=== PATIENT | female | born 1995 | race Caucasian/White ===

== ENCOUNTER → 2020-06-04 | Outpatient (CLI) | payer OTHER ==
--- NOTE | 2020-06-04 13:34 | MR ---
MR brain without contrast HISTORY: H 53.8, R 51.9 Multiplanar multisequence imaging through the brain, no comparisons There is no restricted diffusion. There is no hemorrhage or hydrocephalus. There are normal vascular flow voids. Brain signal is maintained. Corpus callosum, pituitary, cervical medullary junction, cere bellopontine angles are normal. Orbits show symmetric appearance. Paranasal sinuses and mastoid air c ells are well aerated. IMPRESSION: Normal brain MRI.
== END | disposition home or self-care (01) ==
LOC: RADMRIMAIN 07:45
PROVIDERS: ATTEND Family Medicine
DX: H53.8 Other visual disturbances (principal); R51.9 Headache, unspecified
CPT/HCPCS: 70551

== ENCOUNTER → 2020-06-17 | Outpatient (CLI) | payer OTHER ==
--- NOTE | 2020-06-17 08:22 | MR ---
EXAMINATION TYPE: MR brain w con DATE OF EXAM: 06/17/2020 COMPARISON: Prior brain MRI 06/04/2020 HISTORY: Blurry vision, intractable headache TECHNIQUE: Multiplanar, multisequence images of the brain and brainstem is with IV contrast, utilizing 9.5 mL i ntravenous Gadavist . FINDINGS: No abnormal enhancement following contrast administration. Sagittal sinuses enhance unremar kably. Midline structures demonstrate normal morphology. The craniocervical junction appears within normal limits. The visualized sinuses are clear and the globes are intact. IMPRESSION: No abnormal enhancement. Normal brain MRI
--- NOTE | 2020-06-17 08:25 | MR ---
EXAMINATION TYPE: MR angio head wo con DATE OF EXAM: 06/17/2020 COMPARISON: MR brain same date HISTORY: Blurry vision, intractable headache TECHNIQUE: Time of flight images focusing on the [place] of [place] were performed without contrast. Th ree-dimensional reconstructions on an alternate workstation. FINDINGS: Anterior and posterior circulation are intact, [place] of [place] is patent. There is no evid ent dissection, aneurysm, embolus, or significant stenosis. IMPRESSION: Unremarkable [place] of [place] MRA
== END | disposition home or self-care (01) ==
LOC: RADMRIMAIN 06:35
PROVIDERS: ATTEND Family Medicine
DX: H53.8 Other visual disturbances (principal); R51.9 Headache, unspecified
CPT/HCPCS: 70544; 70552; A9585

== ENCOUNTER → 2020-07-08 | Outpatient (CLI) | payer OTHER ==
[2020-07-08 12:58] VITALS: BP 140/99; PULSE 101; RESP 18; TEMP 98
--- NOTE | 2020-07-08 13:19 | P.PAINCN ---
History of Present Illness - Reason for Consult Consult date: 07/08/20 - History of Present Illness This is 45 years old female with a chronic history of severe neck pain and headache, started more than 5 years ago, and increases in intensity over the last month, the headache is constant localized in the right side of the head, from the base of the skull and radiated to the top, she denies any motor or sensory deficit she denies any fever or night sweats which is normal numbness or tingling sensation in the upper extremity, the intensity of the headache increased with then neck movement and also associated with nausea and vomiting occasionally, she has been on different kind of headache medication without any significant relief Past Medical History Additional Past Medical History / Comment(s): headaches and neck pain History of Any Multi-Drug Resistant Organisms: None Reported Past Surgical History: Orthopedic Surgery Additional Past Surgical History / Comment(s): wisdom teeth, left knee ACL Past Anesthesia/Blood Transfusion Reactions: No Reported Reaction Past Psychological History: No Psychological Hx Reported Smoking Status: Never smoker Past Alcohol Use History: Occasional Past Drug Use History: None Reported - Past Family History Mother Family Medical History: No Reported History Medications and Allergies Home Medications Medication Instructions Recorded Confirmed Type Cyclobenzaprine [Flexeril] 1 tab PO DIRECTED PRN 07/05/20 07/05/20 History Ergocalciferol (Vitamin D2) 1,250 mcg PO TH 07/05/20 07/05/20 History [Vitamin D2 (50,000 Iu)] Allergies Allergy/AdvReac Type Severity Reaction Status Date / Time No Known Allergies Allergy Verified 07/05/20 11:05 Physical Exam Vitals: Vital Signs Temp Pulse Resp BP Pulse Ox 07/08/20 12:53 98.0 F 101 H 18 140/99 97 Physical Examinations : -Constitutiona : Cooperative , not in acute distress . -HEENT : nech : supple , no Lymphadenopathy , normal thyroid size . : eyes : no ptosis , no icterus, no photophobia . - neurologic : Cranial nerve II to XII intact , no focal neurological deffecit . -psychatric : alert , oriented X 3 , appropriate affect , intact judgment and insight . -Lymphatic : no Lymphadenopathy . - musculoskeltal : Cervical Spine motor stregnth in the deltoid and biceps, normal right side , normal Left side motor stregnth biceps and the wrist extensors normal right side ,normal left side . motor stregnth in the triceps muscle . normal Right side , normal Left side deep tendon reflexes normal at the biceps , normal at Brachioradialis , normal at triceps. cervical facet loading test: Positive right side only. Severe tenderness over the occipital nerve on the right side. Trigger point identified in the cervical paraspinal muscles on the right side rhomboid and trapezius muscles Lumber spine moter stegnth lower extremities ,thigh and legs 5/5 Right side , 5/5 Left side Results Comments: MRI of the brain= normal Assessment and Plan Plan: Assessment and plan=3-[id number] occipital neuralgia, 2-cervicogenic headache. 3-cervical spondylosis . Patient could benefit from occipital nerve block right side. Time with Patient: Greater than 30 PQRS Measure Charge Sheet Measure #130: Documentation of Current Meds in Medical Chart: Patient's medications documented in chart Measure #226: Tobacco Use: Screen & Cessation Intervention: Pt not a tobacco user Measure #111: Pneumonia Vaccination: Pneumococcal vaccine NOT administered or previously given Measure #47: Advance Care Plan: Advance care planning discussed & documented, pt chose/unable to give Measure #412: Opioid Treatment Agreement: No documentation of signed opioid treatment agreement Measure #408: Opioid Therapy Follow-up Evaluation: Patient had NO f/u eval minimum every 3 months during opioid therapy Measure #317: Preventitive Care & Scrn High Bld Press & F/U: Pre-hypertensive or hypertensive BP documented, pt will f/u with PCP Measure #128: Body Mass Index (BMI) Screening & Follow-up: BMI documented ABOVE normal parameters - f/u documented Measure #131: Pain Assessment & Follow-up: Pain positive & plan documented, Follow-up scheduled Measure #431: Unhealthy Alcohol Use Preventative Care & Scrn: Patient not identified as an unhealthy alcohol user PQRS Narrative: Blood Pressure 140/99 Pain Intensity [Neck] 6 Pain Intensity [Head] 3 Scale Used Numeric (1 - 10) Hx Alcohol Use (MH) No Home Medications: Ambulatory Orders Cyclobenzaprine [Flexeril] 1 tab PO DIRECTED PRN 07/05/20 Ergocalciferol (Vitamin D2) [Vitamin D2 (50,000 Iu)] 1,250 mcg PO TH 07/05/20
== END ==
LOC: PNWHC3 12:39
PROVIDERS: ATTEND Specialist
DX: M47.812 Spondylosis without myelopathy or radiculopathy, cervical region (principal); M54.81 Occipital neuralgia; G44.89 Other headache syndrome
CPT/HCPCS: 99211

== ENCOUNTER → 2020-09-11 | Outpatient (CLI) | payer OTHER ==
[2020-09-11 18:25] LABS: Basophils # (A) 0.04 X 10*3/uL (0.00-0.10); Basophils % (A) 0.4 %; Eosinophils # (A) 0.04 X 10*3/uL (0.04-0.35); Eosinophils % (A) 0.4 %; HCT 39.8 % (37.2-46.3); HGB 13.1 g/dL (12.0-15.0); Lymphocytes # (A) 2.67 X 10*3/uL (0.90-5.00); Lymphocytes % (A) 29.6 %; MCHC 32.9 g/dL (32.0-37.0); MCV 91.1 fL (80.0-97.0); Mean Platelet Volume 10.4 fL (9.5-12.2); Monocytes # (A) 0.55 X 10*3/uL (0.20-1.00); Monocytes % (A) 6.1 %; Neutrophils # (A) 5.69 X 10*3/uL (1.80-7.70); Neutrophils % (A) 63.2 %; Platelet Count 256 X 10*3/uL (140-440); RBC 4.37 X 10*6/uL (4.10-5.20); RDW 12.7 % (11.5-14.5); WBC 9.02 X 10*3/uL (4.50-10.00)
[2020-09-11 20:12] LABS: Erythrocyte Sedimentation Rate 14 mm/Hr (0-20)
[2020-09-12 04:29] LABS: Toxoplasma Antibody (IgG) <3.0 IU/mL (<7.2)
[2020-09-12 08:15] LABS: Angiotensin-1 Converting Enz. 31 U/L (8-52)
[2020-09-12 13:30] LABS: West Nile Virus IgM Antibody 0.21 INDEX (<0.90)
[2020-09-13 20:44] LABS: Bartonella henselae Ab, IgG <1:64; Bartonella henselae Ab, IgM < 1:16
== END | disposition home or self-care (01) ==
LOC: LABWHC1 10:33
PROVIDERS: ATTEND Ophthalmology
DX: H35.059 Retinal neovascularization, unspecified, unspecified eye (principal)
CPT/HCPCS: 36415; 82164; 85025; 85549; 85652; 86140; 86480; 86611; 86682; 86777; 86778; 86780; 86788; 86789

== ENCOUNTER → 2022-07-15 | Outpatient (CLI) | payer OTHER ==
--- NOTE | 2022-07-17 10:10 | MR ---
EXAMINATION TYPE: MR brain/orbits wo/w con DATE OF EXAM: 07/15/2022 7:43 PM COMPARISON: 06/17/2020. 06/04/2020 CLINICAL INDICATION:Female, 27 years old with history of R55; Pt passed out 06-21-2022, chronic conges tion of paranasal sinus, currently has double vision left eye only. Muscle repair for double vision .\ TECHNIQUE: Multi planar, multi sequence imaging was performed through the orbits/face. Post contrast imaging was performed after the administration of 9.5 cc of Gadavist intravenously. FINDINGS, ORBITS: The globes appear symmetrical. Signal intensity of the globes and optic nerves ar e within normal limits. The intraorbital fat appears preserved. Both lacrimal glands are unremarkab le. The extraocular muscles appear symmetric. After administration of contrast, no abnormal enhanceme nt is seen. FINDINGS, BRAIN: The hernandes-white junctions, ventricular system, and cisterns do appear unremarkable. Diffusion-weighted imaging shows no evidence of restricted diffusion. Cavernous sinus is within nor mal limits. After administration of contrast, no abnormal enhancement is seen within the brain. Paranasal sinuses are relatively clear. There is mild mucosal thickening of the turbinates. The ethmo id air cells, sphenoid sinuses, frontal sinuses and maxillary sinuses are well aerated. IMPRESSION: 1. No evidence of intraorbital mass or significant abnormality. 2. No evidence of intracranial mass nor acute/subacute CVA accident. 3. No significant paranasal sinus disease.
== END | disposition home or self-care (01) ==
LOC: RADMRIMAIN 18:14
PROVIDERS: ATTEND Family Medicine
DX: R55 Syncope and collapse (principal); J32.9 Chronic sinusitis, unspecified; H53.2 Diplopia
CPT/HCPCS: 70543; 70553; A9585

== ENCOUNTER → 2023-07-03 | Outpatient (CLI) | payer BC ==
[2023-07-03 22:38] LABS: Basophils # (A) 0.05 X 10*3/uL (0.00-0.10); Basophils % (A) 0.6 %; Eosinophils # (A) 0.06 X 10*3/uL (0.04-0.35); Eosinophils % (A) 0.7 %; HCT 42.9 % (37.2-46.3); HGB 14.1 g/dL (12.0-15.0); Lymphocytes # (A) 2.67 X 10*3/uL (0.90-5.00); Lymphocytes % (A) 30.9 %; MCH 29.5 pg (27.0-32.0); MCHC 32.9 g/dL (32.0-37.0); MCV 89.7 FL (80.0-97.0); Mean Platelet Volume 10.4 FL (9.5-12.2); Monocytes # (A) 0.52 X 10*3/uL (0.20-1.00); NRBC Per 100 WBC 0 X 10*3/uL (0.00-0.01); Neutrophils # (A) 5.32 X 10*3/uL (1.80-7.70); Neutrophils % (A) 61.6 %; Platelet Count 254 X 10*3/uL (140-440); RBC 4.78 X 10*6/uL (4.10-5.20); RDW 13.2 % (11.5-14.5); WBC 8.64 X 10*3/uL (4.50-10.00)
[2023-07-03 23:11] LABS: % Iron Saturation 15.56 (12.00-45.00); ALT 17 U/L (8-44); AST 17 U/L (13-35); Albumin 4.6 g/dL (3.8-4.9); Albumin/Globulin Ratio 1.84 Ratio (1.60-3.17); Alkaline Phosphatase 54 U/L (41-126); BUN/Creat Ratio 12.62 Ratio (12.00-20.00); Blood Urea Nitrogen 10.1 mg/dL (9.0-27.0); Calcium 9.6 mg/dL (8.7-10.3); Carbon Dioxide 24.4 mmol/L (21.6-31.8); Chloride 103 mmol/L (96-109); Chol/HDL Ratio 3.37 Ratio; Ferritin 39.6 ng/mL (10.0-291.0); Globulin 2.5 g/dL (1.6-3.3); Glucose 85 mg/dL (70-110); Iron 61 UG/DL (50-170); Magnesium 1.9 mg/dL (1.5-2.4); Potassium 4.4 mmol/L (3.5-5.5); Sodium 139 mmol/L (135-145); T4, Free (Free Thyroxine) 1.42 ng/dL (0.80-1.80); Total Bilirubin 0.4 mg/dL (0.3-1.2); Total Iron Binding Capacity 392 UG/DL (228-460); Total Protein 7.1 g/dL (6.2-8.2)
== END | disposition home or self-care (01) ==
LOC: LABWHC1 09:43
PROVIDERS: ATTEND Family Medicine
DX: Z13.21 Encounter for screening for nutritional disorder (principal); Z13.220 Encounter for screening for lipoid disorders; Z13.228 Encounter for screening for other metabolic disorders; Z13.29 Encounter for screening for other suspected endocrine disorder; H93.13 Tinnitus, bilateral; N92.6 Irregular menstruation, unspecified; R42 Dizziness and giddiness
CPT/HCPCS: 36415; 80053; 80061; 82306; 82607; 82728; 82746; 83036; 83540; 83550; 83735; 84439; 84443; 84481; 85025